=== PATIENT | female | born 1985 ===

== ENCOUNTER 2019-05-31 11:58 | Inpatient (IN) | payer BC ==
[2019-05-31] MEDS ORDERED: Nalbuphine 10 MG/1 ML Vial IVPUSH PRN (14:26)
[2019-05-31] MEDS ORDERED: Sodium Chloride 0.9% 2.5 ML Syringe FLUSH PRN (14:26)
[2019-05-31] MEDS ORDERED: Misoprostol 200 MCG Tab PO PRN (14:26)
[2019-05-31] MEDS ORDERED: Butorphanol 1 MG/ML SDV IVPUSH PRN (14:26)
[2019-05-31] MEDS ORDERED: Water For Irrigation,Sterile 1,000 ML Container IRR PRN (14:26)
[2019-05-31] MEDS ORDERED: Lidocaine 1% 50 ML MDV INJECT PRN (14:26)
[2019-05-31] MEDS ORDERED: Sodium Chloride 0.9% 10 ML Syringe FLUSH PRN (14:26)
[2019-05-31] MEDS ORDERED: Carboprost Tromethamine 250 MCG/1 ML Amp IM PRN (14:26)
[2019-05-31] MEDS ORDERED: Tranexamic Acid 1,000 MG in Sodium Chloride 0.9% 100 ML IV PRN (14:26)
[2019-05-31] MEDS ORDERED: Sodium Chloride 0.9% 10 ML SDV IV PRN (14:26)
[2019-05-31] MEDS ORDERED: Methylergonovine 0.2 MG/1 ML Amp IM PRN (14:26)
[2019-05-31] MEDS ORDERED: Oxytocin/0.9 % Sodium Chloride 30 UNIT/500 ML BAG IV SCH (14:30)
--- NOTE | 2019-05-31 16:02 | PCM.LDHP ---
L&D History of Present Illness - General Date of Service: 05/31/19 Admit Problem/Dx: Patient Status Order with Admit Dx/Problem 05/31/19 14:26 Patient Status [ADT] Routine Admission Diagnosis/Problem Admission Diagnosis/Problem - planned Source of Information: Patient History Limitations: Reports: No Limitations - History of Present Illness Pain Score: 7 Improves with: Reports: None Worsens with: Reports: None Associated Symptoms: Reports: N - Related Data Allergies/Adverse Reactions: Allergies Allergy/AdvReac Type Severity Reaction Status Date / Time No Known Allergies Allergy Verified 05/31/19 14:14 Home Medications: Home Meds Levothyroxine Sodium [Synthroid] 1 tab-cap PO QAM 05/31/19 [History] Past Medical History HEENT History: Reports: Other (See Below) Other HEENT History: Thyroidectomy 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: Endocrine/Metabolic History: Reports: Hyperthyroidism, Obesity/BMI 30+ - Past Surgical History Endocrine Surgical History: Reports: Thyroidectomy Other Endocrine Surgeries/Procedures: 2008 Social & Family History - Family History Family Medical History: Noncontributory Oncologic: Reports: Colon - Tobacco Use Smoking Status *Q: Never Smoker Second Hand Smoke Exposure: No - Caffeine Use Caffeine Use: Reports: Coffee - Recreational Drug Use Recreational Drug Use: No H&P Review of Systems - Review of Systems: Review Of Systems: See Below General: Reports: No Symptoms HEENT: Reports: No Symptoms Pulmonary: Reports: No Symptoms Cardiovascular: Reports: No Symptoms Gastrointestinal: Reports: No Symptoms Genitourinary: Reports: No Symptoms Musculoskeletal: Reports: No Symptoms Skin: Reports: No Symptoms Psychiatric: Reports: No Symptoms Neurological: Reports: No Symptoms Hematologic/Lymphatic: Reports: No Symptoms Immunologic: Reports: No Symptoms L&D Exam - Exam Exam: See Below - Vital Signs Weight: 108.409 kg - OB Specific Contraction Intensity: Mild to Moderate Movement: Active Heart Tones: Present - Adams Score Adams Score Cervix Position: Midposition Adams Score Consistency: Soft Adams Score Effacement: >80% Adams Score Dilation: 3-4 cm Adams Score Infant's Station: -3 Adams Score Total: 8 - Exam General: Alert, Oriented HEENT: PERRLA, Conjunctiva Clear, EACs Clear, EOMI, Hearing Intact, Mucosa Moist & [place], Nares Patent, Normal Nasal Septum, Posterior Pharynx Clear, TMs Clear Neck: Supple, Trachea Midline Lungs: Clear to Auscultation, Normal Respiratory Effort Cardiovascular: Regular Rate, Regular Rhythm GI/Abdominal Exam: Normal Bowel Sounds, Soft, Non-Tender, No Organomegaly, No Distention, No Abnormal Bruit, No Mass, Pelvis Stable Rectal Exam: Normal Exam, Normal Rectal Tone Genitourinary: Normal external exam, Normal bimanual exam, Normal speculum exam Back Exam: Normal Inspection, Full Range of Motion Extremities: Normal Inspection, Normal Range of Motion, Non-Tender, No Pedal Edema, Normal Capillary Refill Skin: Warm, Dry, Intact Neurological: Cranial Nerves Intact, Reflexes Equal Bilateral Psychiatric: Alert, Normal Affect, Normal Mood - Patient Data Lab Results Last 24 hrs: Laboratory Results - last 24 hr 05/31/19 05/31/19 Range/Units 14:47 14:47 WBC 12.83 H (4.0-11.0) K/uL RBC 4.66 (4.30-5.90) M/uL Hgb 11.8 L (12.0-16.0) g/dL Hct 36.7 (36.0-46.0) % MCV 78.8 L (80.0-98.0) fL MCH 25.3 L (27.0-32.0) pg MCHC 32.2 (31.0-37.0) g/dL RDW Std Deviation 44.4 (28.0-62.0) fl RDW Coeff of Kirsten 16 H (11.0-15.0) % Plt Count 241 (150-400) K/uL MPV 10.90 (7.40-12.00) fL Nucleated RBC % 0.0 /100WBC Nucleated RBCs # 0 K/uL Blood Type O POSITIVE Antibody Screen NEGATIVE Result Diagrams: 05/31/19 14:47 Problem List Initiated/Reviewed/Updated: Yes Orders Last 24hrs: Active Orders 24 hr Category Date Time Status Patient Status [ADT] Routine ADT 05/31/19 14:26 Active Heart Tones [RC] CONTINUOUS Care 05/31/19 14:26 Active Non Stress Test [RC] PER UNIT ROUTINE Care 05/31/19 14:26 Active May Shower [RC] ASDIRECTED Care 05/31/19 14:26 Active Notify Provider [RC] PRN Care 05/31/19 14:26 Active Up ad Astrid [RC] ASDIRECTED Care 05/31/19 14:26 Active Vaginal Exam [RC] PRN Care 05/31/19 14:26 Active Vital Signs [RC] PER UNIT ROUTINE Care 05/31/19 14:26 Active RAPID PLASMA REAGIN, QUANT [REF] Routine Lab 05/31/19 14:47 Received Butorphanol [Stadol] Med 05/31/19 14:26 Active 1 mg IVPUSH Q1H PRN Carboprost Tromethamine [Hemabate DS] Med 05/31/19 14:26 Active 250 mcg IM ASDIRECTED PRN Lactated Ringers [Ringers, Lactated] 1,000 ml Med 05/31/19 14:30 Active IV ASDIRECTED Lidocaine 1% [Xylocaine 1%] Med 05/31/19 14:26 Active 50 ml INJECT ONETIME PRN Methylergonovine [Methergine] Med 05/31/19 14:26 Active 0.2 mg IM ASDIRECTED PRN Nalbuphine [Nubain] Med 05/31/19 14:26 Active 10 mg IVPUSH Q1H PRN Oxytocin/0.9 % Sodium Chloride [Oxytocin 30 Unit/500 ML Med 05/31/19 14:30 Active -NS] 30 unit in 500 ml IV TITRATE Sodium Chloride 0.9% [Normal Saline] Med 05/31/19 14:26 Active 10 ml IV ASDIRECTED PRN Sodium Chloride 0.9% [Saline Flush] Med 05/31/19 14:26 Active 10 ml FLUSH ASDIRECTED PRN Sodium Chloride 0.9% [Saline Flush] Med 05/31/19 14:26 Active 2.5 ml FLUSH ASDIRECTED PRN Tranexamic Acid [Cyklokapron] 1,000 mg Med 05/31/19 14:26 Active Sodium Chloride 0.9% [Normal Saline] 100 ml IV ONETIME Water For Irrigation,Sterile [Sterile Water for Med 05/31/19 14:26 Active Irrigation] 1,000 ml IRR ASDIRECTED PRN miSOPROStol [Cytotec] Med 05/31/19 14:26 Active 200 mcg PO ONETIME PRN Scalp Electrode [WOMSER] Per Unit Routine Oth 05/31/19 14:26 Ordered Peripheral IV Insertion Adult [OM.PC] Routine Oth 05/31/19 14:26 Ordered Resuscitation Status Routine Resus Stat 05/31/19 14:26 Ordered Medication Orders Butorphanol Tartrate (Stadol) 1 mg IVPUSH Q1H PRN PRN Reason: Pain Last Admin: 05/31/19 15:08 Dose: 1 mg Carboprost Tromethamine (Hemabate Ds) 250 mcg IM ASDIRECTED PRN PRN Reason: Post Hemorrhage Lactated Ringer's (Ringers, Lactated) 1,000 mls @ 150 mls/hr IV ASDIRECTED BAUTISTA Oxytocin/Sodium Chloride (Oxytocin 30 Unit/500 Ml-Ns) 30 unit in 500 mls @ 500 mls/hr IV TITRATE BAUTISTA Tranexamic Acid 1,000 mg/ (Sodium Chloride) 110 mls @ 660 mls/hr IV ONETIME PRN PRN Reason: Bleeding Lidocaine HCl (Xylocaine 1%) 50 ml INJECT ONETIME PRN PRN Reason: Laceration repair Methylergonovine Maleate (Methergine) 0.2 mg IM ASDIRECTED PRN PRN Reason: Post Hemorrhage Misoprostol (Cytotec) 200 mcg PO ONETIME PRN PRN Reason: Post Hemorrhage Nalbuphine HCl (Nubain) 10 mg IVPUSH Q1H PRN PRN Reason: Pain (severe 7-10) Sodium Chloride (Saline Flush) 10 ml FLUSH ASDIRECTED PRN PRN Reason: Keep Vein Open Sodium Chloride (Saline Flush) 2.5 ml FLUSH ASDIRECTED PRN PRN Reason: Keep Vein Open Sodium Chloride (Normal Saline) 10 ml IV ASDIRECTED PRN PRN Reason: IV Use Sterile Water (Sterile Water For Irrigation) 1,000 ml IRR ASDIRECTED PRN PRN Reason: delivery Assessment/Plan Comment:: IUP 38wk+ in early active labor.
[2019-05-31] MEDS: Lactated Ringers 1,000 ML IV SCH ×3 (16:20→20:34)
[2019-05-31] MEDS ORDERED: Ropivacaine 0.2% 2 MG/ML 20 ML SDV ONE (18:10)
[2019-05-31] MEDS ORDERED: Ropivacaine HCl/PF 100 ML ONE (18:10)
[2019-05-31] MEDS ORDERED: fentaNYL 100 MCG/2 ML SDV ONE (18:10)
--- NOTE | 2019-05-31 18:58 | PCM.PREANE ---
Preanesthetic Assessment - Procedure Proposed Procedure: Labor Epidural - Anesthesia/Transfusion/Family Hx Anesthesia History: Prior Anesthesia Without Reaction Family History of Anesthesia Reaction: No Transfusion History: No Prior Transfusion(s) Intubation History: Unknown - Review of Systems General: No Symptoms Pulmonary: No Symptoms Cardiovascular: No Symptoms Gastrointestinal: No Symptoms Neurological: No Symptoms Other: Reports: None - Physical Assessment NPO Status Date: 05/31/19 NPO Status Time: 18:00 (Liquids) Height: 1.6 m Weight: 108.409 kg ASA Class: 2 Mental Status: Alert & Oriented x3 Airway Class: Mallampati = 2 Dentition: Reports: Normal Dentition Thyro-Mental Finger Breadths: 3 Mouth Opening Finger Breadths: 3 ROM/Head Extension: Full Lungs: Clear to Auscultation Cardiovascular: Regular Rate - Lab Values: Laboratory Last Values WBC 12.83 K/uL (4.0-11.0) H 05/31/19 14:47 RBC 4.66 M/uL (4.30-5.90) 05/31/19 14:47 Hgb 11.8 g/dL (12.0-16.0) L 05/31/19 14:47 Hct 36.7 % (36.0-46.0) 05/31/19 14:47 MCV 78.8 fL (80.0-98.0) L 05/31/19 14:47 MCH 25.3 pg (27.0-32.0) L 05/31/19 14:47 MCHC 32.2 g/dL (31.0-37.0) 05/31/19 14:47 RDW Std Deviation 44.4 fl (28.0-62.0) 05/31/19 14:47 RDW Coeff of Kirsten 16 % (11.0-15.0) H 05/31/19 14:47 Plt Count 241 K/uL (150-400) 05/31/19 14:47 MPV 10.90 fL (7.40-12.00) 05/31/19 14:47 Nucleated RBC % 0.0 /100WBC 05/31/19 14:47 Nucleated RBCs # 0 K/uL 05/31/19 14:47 Blood Type O POSITIVE 05/31/19 14:47 Antibody Screen NEGATIVE 05/31/19 14:47 - Allergies Allergies/Adverse Reactions: Allergies Allergy/AdvReac Type Severity Reaction Status Date / Time No Known Allergies Allergy Verified 05/31/19 14:14 - Blood Blood Available: No Product(s) Available: None - Anesthesia Plan Pre-Op Medication Ordered: None - Acknowledgements Anesthesia Type Planned: Epidural Pt an Appropriate Candidate for the Planned Anesthesia: Yes Alternatives and Risks of Anesthesia Discussed w Pt/Guardian: Yes Pt/Guardian Understands and Agrees with Anesthesia Plan: Yes Additional Comments: Acceptable candidate for THIAGO. Discussed, ? answered, permit signed, wishes to proceed. Pain 03/31. 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: Endocrine/Metabolic History: Reports: Hyperthyroidism, Obesity/BMI 30+ - Past Surgical History Endocrine Surgical History: Reports: Thyroidectomy Other Endocrine Surgeries/Procedures: 2008 - SUBSTANCE USE Smoking Status *Q: Never Smoker Second Hand Smoke Exposure: No Recreational Drug Use History: No - HOME MEDS Home Medications: Home Meds Levothyroxine Sodium [Synthroid] 1 tab-cap PO QAM 05/31/19 [History] - CURRENT (IN HOUSE) MEDS Current Meds: Current Medications Butorphanol Tartrate (Stadol) 1 mg IVPUSH Q1H PRN PRN Reason: Pain Last Admin: 05/31/19 15:08 Dose: 1 mg Carboprost Tromethamine (Hemabate Ds) 250 mcg IM ASDIRECTED PRN PRN Reason: Post Hemorrhage Lactated Ringer's (Ringers, Lactated) 1,000 mls @ 150 mls/hr IV ASDIRECTED BAUTISTA Last Admin: 05/31/19 16:20 Dose: 150 mls/hr Oxytocin/Sodium Chloride (Oxytocin 30 Unit/500 Ml-Ns) 30 unit in 500 mls @ 500 mls/hr IV TITRATE BAUTISTA Tranexamic Acid 1,000 mg/ (Sodium Chloride) 110 mls @ 660 mls/hr IV ONETIME PRN PRN Reason: Bleeding Lidocaine HCl (Xylocaine 1%) 50 ml INJECT ONETIME PRN PRN Reason: Laceration repair Methylergonovine Maleate (Methergine) 0.2 mg IM ASDIRECTED PRN PRN Reason: Post Hemorrhage Misoprostol (Cytotec) 200 mcg PO ONETIME PRN PRN Reason: Post Hemorrhage Nalbuphine HCl (Nubain) 10 mg IVPUSH Q1H PRN PRN Reason: Pain (severe 7-10) Sodium Chloride (Saline Flush) 10 ml FLUSH ASDIRECTED PRN PRN Reason: Keep Vein Open Sodium Chloride (Saline Flush) 2.5 ml FLUSH ASDIRECTED PRN PRN Reason: Keep Vein Open Sodium Chloride (Normal Saline) 10 ml IV ASDIRECTED PRN PRN Reason: IV Use Sterile Water (Sterile Water For Irrigation) 1,000 ml IRR ASDIRECTED PRN PRN Reason: delivery Discontinued Medications Fentanyl (Sublimaze) Confirm Administered Dose 100 mcg .ROUTE .STK-MED ONE Stop: 05/31/19 18:11 Ropivacaine (Naropin 0.2%) Confirm Administered Dose 100 mls @ as directed .ROUTE .STK-MED ONE Stop: 05/31/19 18:11 Ropivacaine (Naropin 0.2%) Confirm Administered Dose 20 ml .ROUTE .STK-MED ONE Stop: 05/31/19 18:11
--- NOTE | 2019-05-31 19:11 | PCM.PRNOTE ---
- Free Text/Narrative Note: , active labor, dilated ~4cm, pain 9/10. Discussed, ? answered, permit signed, wishes to proceed. Acceptable candidate. 18:18 Prep with chloroprep 18:20 Skin local 4 ml 1% lido 18:24 Space ID'd with air/saline mix on 3rd pass. needle adjusted. Landmarks difficult. Reconfirmed with saline. Cath to 8cm without issues. 18:27-29 Test with 5ml lidocaine 1.5% + 1:200K epi. -asp, NEGATIVE TEST. Occlusive dressing. 18:35-18:44 Loading dose with 7ml 0.2% Naropin + 100mcg Fentanyl. Pain resolving. 19:10 Infusion started 8ml/hr with 4ml/q15 bolus. No problems noted at present. VSS.
[2019-06-01] MEDS ORDERED: oxyCODONE 5 MG Tab PO PRN (01:26)
[2019-06-01] MEDS ORDERED: Lanolin 100% Cream 7 GM Tube TOP PRN (01:26)
[2019-06-01] MEDS ORDERED: Acetaminophen 500 MG Tab PO PRN (01:26)
[2019-06-01] MEDS ORDERED: Ibuprofen 400 MG Tab PO PRN (01:26)
[2019-06-01] MEDS ORDERED: Bisacodyl 10 MG Supp RECTAL PRN (01:26)
[2019-06-01] MEDS ORDERED: Benzocaine/Menthol 20%-0.5% Spray 78 GM Cannister TOP PRN (01:26)
[2019-06-01] MEDS ORDERED: Witch Hazel Medicated Pads 40/Jar TOP PRN (01:26)
--- NOTE | 2019-06-01 02:24 | OR ---
SURGEON: Alex Huang MD DATE OF PROCEDURE: Ms. Martinez is 34 years old. She is para 1-0-0-1. She is 38 plus 3. She is followed in our office primarily by me. She transferred to us her care in the middle of her from [place]. Her workup was essentially normal. Her diabetes screen is normal. However, the patient has hypothyroidism and she was on Synthroid and she was treated adequately and her lab level is acceptable. The patient is admitted in active labor. At the time of admission, she was 3 to 4 cm, vertex with bulging bag of water, and she was continuing to have contraction on her home and she had epidural anesthesia for labor analgesia and she had spontaneous rupture of the membranes and the patient continued to progress without any problem. She became complete-complete and she was able to accomplish normal spontaneous vaginal delivery of a male fetus. 1 nuchal cord was noted and the fetus cried immediately and the weight is not available. At this time, the score reported to be 8 and 9. The placenta delivered spontaneous, complete, and intact without any problem. There was a first-degree perineal laceration repaired with 3-0 Vicryl without any problem. There was no other laceration. ESTIMATED BLOOD LOSS: 300 to 350 mL. heart rate was category 1 through the entire process of labor. There was no complication in the labor and delivery process. LEVI / SRIKANTH /[id number]
[2019-06-01] MEDS: Ibuprofen 800 MG Tab PO PRN ×3 (04:08→16:58)
--- NOTE | 2019-06-01 07:11 | PCM48HPAN ---
Post Anesthesia Note - EVALUATION WITHIN 48HRS OF ANESTHETIC Vital Signs in Normal Range: Yes Patient Participated in Evaluation: Yes Respiratory Function Stable: Yes Airway Patent: Yes Cardiovascular Function Stable: Yes Hydration Status Stable: Yes Pain Control Satisfactory: Yes Nausea and Vomiting Control Satisfactory: Yes Mental Status Recovered: Yes
--- NOTE | 2019-06-01 07:11 | PCM.POSTAN ---
POST ANESTHESIA ASSESSMENT - MENTAL STATUS Mental Status: Alert - RESPIRATORY Respiratory Status: Respiratory Rate WNL - CARDIOVASCULAR CV Status: Pulse Rate WNL - GASTROINTESTINAL GI Status: No Symptoms - POST OP HYDRATION Hydration Status: Adequate & Stable
--- NOTE | 2019-06-01 07:23 | PCM48HPAN ---
Post Anesthesia Note - EVALUATION WITHIN 48HRS OF ANESTHETIC Vital Signs in Normal Range: Yes Patient Participated in Evaluation: Yes Respiratory Function Stable: Yes Airway Patent: Yes Cardiovascular Function Stable: Yes Hydration Status Stable: Yes Pain Control Satisfactory: Yes Nausea and Vomiting Control Satisfactory: Yes Mental Status Recovered: Yes - COMMENTS/OBSERVATIONS Free Text/Narrative:: Doing well post. No problems noted.
[2019-06-01] MEDS: Acetaminophen 500 MG Tab PO PRN ×2 (07:38→20:15)
[2019-06-01] MEDS: Docusate Sodium 100 MG Cap PO PRN (20:16)
[2019-06-02] MEDS: Ibuprofen 800 MG Tab PO PRN ×2 (06:21→13:29)
--- NOTE | 2019-06-02 09:05 | PCM.DCSUM1 ---
Discharge Summary - Hospital Course Free Text/Narrative:: Discharge home with . Follow up in 6 weeks for visit. Diagnosis: Stroke: No Modified Gilliam Scale: No Symptoms at All Modified Aaliyah Scale Score: 0 - Discharge Data Discharge Date: 06/02/19 Discharge Disposition: Home, Self-Care 01 Condition: Good - Referral to Home Health Primary Care Physician: PCP None - Discharge Diagnosis/Problem(s) (1) (normal spontaneous vaginal delivery) SNOMED Code(s): 52106311, [id number] ICD Code: O80 - ENCOUNTER FOR FULL-TERM UNCOMPLICATED DELIVERY Status: Acute Current Visit: Yes - Patient Instructions Diet: Heart Healthy Diet Activity: As Tolerated, No Strenuous Activities, Rest and Relax Today Driving: May Drive Today Showering/Bathing: May Shower Notify Provider of: Fever, Increased Pain, Swelling and Redness, Nausea and/or Vomiting Other/Special Instructions: Discharge home with . Follow up in 6 weeks for visit. - Discharge Plan *PRESCRIPTION DRUG MONITORING PROGRAM REVIEWED*: Not Applicable *COPY OF PRESCRIPTION DRUG MONITORING REPORT IN PATIENT KASIA: Not Applicable Prescriptions/Med Rec: Ibuprofen [Motrin] 800 mg PO Q6H PRN #90 tablet PRN Reason: Pain Home Medications: Home Meds Levothyroxine Sodium [Synthroid] 1 tab-cap PO QAM 05/31/19 [History] Ibuprofen [Motrin] 800 mg PO Q6H PRN #90 tablet 06/02/19 [Rx] Oxygen Therapy Mode: Room Air - Discharge Summary/Plan Comment DC Time >30 min.: Yes Discharge Summary/Plan Comment: Discharge home with infant. Follow up in 6 weeks for visit. - General Info Date of Service: 06/02/19 Admission Dx/Problem (Free Text: Patient Status Order with Admit Dx/Problem 05/31/19 14:26 Patient Status [ADT] Routine Admission Diagnosis/Problem Admission Diagnosis/Problem - planned Functional Status: Reports: Pain Controlled, Tolerating Diet, Ambulating, Urinating - Review of Systems General: Reports: No Symptoms HEENT: Reports: No Symptoms Pulmonary: Reports: No Symptoms Cardiovascular: Reports: No Symptoms Gastrointestinal: Reports: No Symptoms Genitourinary: Reports: No Symptoms Musculoskeletal: Reports: No Symptoms Skin: Reports: No Symptoms Neurological: Reports: No Symptoms Psychiatric: Reports: No Symptoms - Patient Data Vitals - Most Recent: Last Vital Signs Temp 36.2 C 06/02/19 08:15 Pulse 78 06/02/19 08:15 Resp 16 06/02/19 08:15 BP 101/72 06/02/19 08:15 Pulse Ox 97 06/02/19 08:15 Weight - Most Recent: 108.409 kg Lab Results - Last 24 hrs: Laboratory Results - last 24 hr 06/02/19 Range/Units 06:02 Hgb 10.3 L (12.0-16.0) g/dL Hct 32.7 L (36.0-46.0) % Med Orders - Current: Current Medications Acetaminophen (Tylenol Extra Strength) 500 mg PO Q4H PRN PRN Reason: Pain Acetaminophen (Tylenol Extra Strength) 1,000 mg PO Q4H PRN PRN Reason: Pain Last Admin: 06/01/19 20:15 Dose: 1,000 mg Benzocaine/Menthol (Dermoplast Pain Relief 20%-0.5% [place]) 78 gm TOP ASDIRECTED PRN PRN Reason: Perineal Comfort Measure Last Admin: 06/01/19 04:11 Dose: 1 can Bisacodyl (Dulcolax) 10 mg RECTAL ONETIME PRN PRN Reason: Constipation Carboprost Tromethamine (Hemabate Ds) 250 mcg IM ASDIRECTED PRN PRN Reason: Post Hemorrhage Docusate Sodium (Colace) 100 mg PO BID PRN PRN Reason: Constipation Last Admin: 06/01/19 20:16 Dose: 100 mg Emollient Ointment (Lansinoh Hpa) 0 gm TOP ASDIRECTED PRN PRN Reason: Sore Nipples Last Admin: 06/01/19 09:59 Dose: 7 gm Tranexamic Acid 1,000 mg/ (Sodium Chloride) 110 mls @ 660 mls/hr IV ONETIME PRN PRN Reason: Bleeding Ibuprofen (Motrin) 400 mg PO Q4H PRN PRN Reason: Pain Ibuprofen (Motrin) 800 mg PO Q6H PRN PRN Reason: Pain Last Admin: 06/02/19 06:21 Dose: 800 mg Methylergonovine Maleate (Methergine) 0.2 mg IM ASDIRECTED PRN PRN Reason: Post Hemorrhage Misoprostol (Cytotec) 200 mcg PO ONETIME PRN PRN Reason: Post Hemorrhage Oxycodone HCl (Oxycodone) 5 mg PO Q2H PRN PRN Reason: Pain Last Admin: 06/01/19 04:07 Dose: 5 mg Sodium Chloride (Saline Flush) 10 ml FLUSH ASDIRECTED PRN PRN Reason: Keep Vein Open Sodium Chloride (Saline Flush) 2.5 ml FLUSH ASDIRECTED PRN PRN Reason: Keep Vein Open Sodium Chloride (Normal Saline) 10 ml IV ASDIRECTED PRN PRN Reason: IV Use Witch Alexa (Tucks) 1 pad TOP ASDIRECTED PRN PRN Reason: comfort care Last Admin: 06/01/19 04:11 Dose: 1 tub Discontinued Medications Butorphanol Tartrate (Stadol) 1 mg IVPUSH Q1H PRN PRN Reason: Pain Last Admin: 05/31/19 15:08 Dose: 1 mg Fentanyl (Sublimaze) Confirm Administered Dose 100 mcg .ROUTE .STK-MED ONE Stop: 05/31/19 18:11 Lactated Ringer's (Ringers, Lactated) 1,000 mls @ 150 mls/hr IV ASDIRECTED [facility] Last Admin: 05/31/19 20:34 Dose: 150 mls/hr Oxytocin/Sodium Chloride (Oxytocin 30 Unit/500 Ml-Ns) 30 unit in 500 mls @ 500 mls/hr IV TITRATE [facility] Last Admin: 06/01/19 01:17 Dose: 999 mls/hr Ropivacaine (Naropin 0.2%) Confirm Administered Dose 100 mls @ as directed .ROUTE .STK-MED ONE Stop: 05/31/19 18:11 Lidocaine HCl (Xylocaine 1%) 50 ml INJECT ONETIME PRN PRN Reason: Laceration repair Nalbuphine HCl (Nubain) 10 mg IVPUSH Q1H PRN PRN Reason: Pain (severe 7-10) Ropivacaine (Naropin 0.2%) Confirm Administered Dose 20 ml .ROUTE .STK-MED ONE Stop: 05/31/19 18:11 Sterile Water (Sterile Water For Irrigation) 1,000 ml IRR ASDIRECTED PRN PRN Reason: delivery - Exam General: Reports: Alert, Oriented, Cooperative, No Acute Distress Lungs: Reports: Normal Respiratory Effort GI/Abdominal Exam: Soft, Non-Tender, Pelvis Stable (Female) Exam: Deferred, Vaginal Bleeding, Vaginal Tears (with repair) Rectal (Female) Exam: Deferred Back Exam: Reports: Normal Inspection, Full Range of Motion Extremities: Normal Inspection, Normal Range of Motion, Non-Tender, No Pedal Edema Skin: Reports: Warm, Dry, Intact Wound/Incisions: Reports: Healing Well Neurological: Reports: No New Focal Deficit, Normal Speech, Normal Tone, Strength Equal Bilateral, Sensation Intact Psy/Mental Status: Reports: Alert, Normal Affect, Normal Mood
[2019-06-02] MEDS: Docusate Sodium 100 MG Cap PO PRN (09:10)
== END 2019-06-02 17:25 | disposition home or self-care (01) | DRG 560 ==
LOC: MW.OBCHECK 11:58 → MW.OB 12:00 → MW.OBCHECK 14:26 → MW.OB 14:26 → OBSVTOIN 06-01 01:16 → MW.OB 06-01 04:56
PROVIDERS: ADMIT Obstetrics & Gynecology; ATTEND Obstetrics & Gynecology
PROC: 10E0XZZ Delivery of Products of Conception, External Approach (ICD-10-PCS; principal; 2019-06-01)
PROC: 0HQ9XZZ Repair Perineum Skin, External Approach (ICD-10-PCS; 2019-06-01)
PROC: 3E0R3BZ Introduction of Anesthetic Agent into Spinal Canal, Percutaneous Approach (ICD-10-PCS; 2019-06-01)
DX: O99.284 Endocrine, nutritional and metabolic diseases complicating childbirth (principal); E03.9 Hypothyroidism, unspecified; O69.81X0 Labor and delivery complicated by cord around neck, without compression, not applicable or unspecified; O70.0 First degree perineal laceration during delivery; O77.0 Labor and delivery complicated by meconium in amniotic fluid; Z37.0 Single live birth; O99.214 Obesity complicating childbirth; E66.9 Obesity, unspecified; Z3A.38 38 weeks gestation of pregnancy
CPT/HCPCS: 01967; 36415; 51702; 59025; 59409; 85014; 85018; 85027; 86593; 86850; 86900; 86901; A9270-GY; J0595; J2590; J7120

== ENCOUNTER 2020-08-04 17:55 | Emergency (ER) | payer BC ==
[2020-08-04] MEDS ORDERED: Lidocaine 1% 10 ML MDV INJECT ONE (18:23)
--- NOTE | 2020-08-04 18:25 | EDM.PDOC ---
ED HPI GENERAL MEDICAL PROBLEM - General Chief Complaint: Laceration Stated Complaint: CUT TOLEFT HAND Time Seen by Provider: 08/04/20 18:10 Source of Information: Reports: Patient History Limitations: Reports: No Limitations - History of Present Illness INITIAL COMMENTS - FREE TEXT/NARRATIVE: Is a 35-year-old female who presents today for laceration to her left webbing between her thumb. Patient dates that she has incisions that slipped out of her hand and cut that area. Patient not suffer any other injuries. Patient has full range of motion of the hand. Patient is not sure the last time she had a tetanus shot. Patient denies any other complaints. 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 ED EXAM, SKIN/RASH Exam: See Below Exam Limited By: No Limitations General Appearance: Alert, WD/WN Eye Exam: Bilateral Eye: EOMI, PERRL Peripheral Pulses: 2+: Radial (L) Extremities: Normal Range of Motion Neurological: Alert, Oriented Location, Skin: Other (webbing between thumb 3mm lac) ED SKIN PROCEDURES - Laceration/Wound Repair Hand Appearance: Superficial Distal NVT: Neuro & Vascular Intact Anesthetic Type: Local Local Anesthesia - Lidocaine (Xylocaine): 1% Plain Local Anesthetic Volume: 1cc Saline Irrigation (cc's): 1,000 Closed with: Sutures Lac/Wound length In cm: 2 Suture Size: 6-0 # of Sutures: 2 Course - Vital Signs Last Recorded V/S: Last Vital Signs Temp 96.2 F L 08/04/20 18:13 Pulse 94 08/04/20 18:13 Resp 18 08/04/20 18:13 BP 126/67 08/04/20 18:13 Pulse Ox 98 08/04/20 18:13 - Orders/Labs/Meds Meds: Medications Discontinued Medications Generic Name Dose Route Start Last Admin Trade Name John PRN Reason Stop Dose Admin Lidocaine HCl 10 ml 08/04/20 18:23 Xylocaine 1% INJECT 08/04/20 18:24 ONETIME ONE Lidocaine HCl 5 ml 08/04/20 18:23 Xylocaine-Mpf 1% INJECT 08/04/20 18:24 ONETIME ONE Lidocaine HCl 10 ml 08/04/20 18:25 Xylocaine-Mpf 1% INJECT 08/04/20 18:26 ONETIME ONE Departure - Departure Time of Disposition: 18:42 Disposition: Home, Self-Care 01 Condition: Good Clinical Impression: Laceration of hand - Discharge Information *PRESCRIPTION DRUG MONITORING PROGRAM REVIEWED*: Not Applicable *COPY OF PRESCRIPTION DRUG MONITORING REPORT IN PATIENT KASIA: Not Applicable Instructions: Sutured Wound Care Referrals: Shayne Pa MD [Primary Care Provider] - Forms: ED Department Discharge Additional Instructions: The following information is given to patients seen in the emergency department who are being discharged to home. This information is to outline your options for follow-up care. We provide all patients seen in our emergency department with a follow-up referral. The need for follow-up, as well as the timing and circumstances, are variable depending upon the specifics of your emergency department visit. If you don't have a primary care physician on staff, we will provide you with a referral. We always advise you to contact your personal physician following an emergency department visit to inform them of the circumstance of the visit and for follow-up with them and/or the need for any referrals to a consulting specialist. The emergency department will also refer you to a specialist when appropriate. This referral assures that you have the opportunity for follow-up care with a specialist. All of these measure are taken in an effort to provide you with optimal care, which includes your follow-up. Under all circumstances we always encourage you to contact your private physician who remains a resource for coordinating your care. When calling for follow-up care, please make the office aware that this follow-up is from your recent emergency room visit. If for any reason you are refused follow-up, please contact the [facility] Emergency Department at and asked to speak to the emergency department charge nurse. Please follow up with your primary care physician. If you do not have a primary care physician, see below: [facility] [address] [place] [id number] [facility] [address] [place] [address] Please follow-up in 7 to 10 days to have the sutures removed. If you have any drainage from the area increased redness fevers or chills please return to the ED immediately. Sepsis Event Note (ED) - Evaluation Sepsis Screening Result: No Definite Risk - Focused Exam Vital Signs: Vital Signs Temp Pulse Resp BP Pulse Ox 08/04/20 18:13 96.2 F L 94 18 126/67 98 - Assessment/Plan Assessment:: Patient is a 35-year-old female who presents today for laceration to the webbing between the thumb index finger. Will repair the laceration with sutures and likely discharge home.
== END 2020-08-04 18:58 | disposition home or self-care (01) ==
LOC: MW.ED 17:55
DX: S61.412A Laceration without foreign body of left hand, initial encounter (principal); J45.909 Unspecified asthma, uncomplicated; E03.9 Hypothyroidism, unspecified; E66.9 Obesity, unspecified; Z68.41 Body mass index [BMI] 40.0-44.9, adult; Z79.899 Other long term (current) drug therapy; W26.9XXA Contact with unspecified sharp object(s), initial encounter
CPT/HCPCS: 12001; 99282; J2001